=== PATIENT | female | born 1945 | race Caucasian/White ===

== ENCOUNTER → 2020-12-26 | Outpatient (CLI) | payer MEDICARE, BC ==
[~2020-12-26] MED LIST: ATENOLOL 100MG100 MG PO; COZAAR 50 MG TA50 M2 PO; HYDROCHLOROTHIA50 MG PO; METFORMIN HCL500 MG PO; NORVASC5 MG PO; ZOCOR20 MG PO
== END ==
LOC: M.ULTRA 09:51
PROVIDERS: ATTEND Family Medicine
DX: R79.89 Other specified abnormal findings of blood chemistry (principal); M79.661 Pain in right lower leg; M79.662 Pain in left lower leg; M79.89 Other specified soft tissue disorders

== ENCOUNTER → 2021-01-16 | Outpatient (CLI) | payer MEDICARE, BC | LOC: M.RAD 12-26 13:11 → M.NUC 07:30 | PROVIDERS: ATTEND Family Medicine | DX: R79.89 Other specified abnormal findings of blood chemistry (principal); R06.02 Shortness of breath; I10 Essential (primary) hypertension; E11.9 Type 2 diabetes mellitus without complications ==